=== PATIENT | female | born 2005 | race Caucasian/White ===

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

== ENCOUNTER 2024-02-03 07:25 | Emergency (ER) | payer OTHER, MEDICAID, SELFPAY ==
[2024-02-03 07:34] VITALS: BP 157/95; PULSE 117; RESP 16; TEMP 36.6; O2SAT 99; BMI 23.7
[2024-02-03 07:40] VITALS: BP 134/95; PULSE 87; O2SAT 98
[2024-02-03] MEDS: sodium chloride 0.9% 1,000 ML 999 ML IV (07:51)
--- NOTE | 2024-02-03 07:51 | ED_ITS ---
HPI - Nausea/Vomiting/Diarrhea 2 General: Chief complaint: Nausea/Vomiting/Diarrhea Stated complaint: NVD Time Seen by Provider: 02/03/24 07:27 History of Present Illness: 18-year-old female presents emergency ro om complaining of nausea and vomiting. Days. He had about 3 days ago she was seen yesterday at [facility] urgent care clinic they gave her Zofran and omeprazole. Discussed with her, sounds like a Paxlovid had some reflux dyspepsia from overproduction acid. While she is not nauseous she has not had any abdominal pain. She denies any fever sweats chills dysuria urgency or frequency no shortness of breath no chest pain. The most she can do to localize discomfort is right upper quadrant abdominal pain. She has not noticed specific trigger her symptoms. Associated nausea: Yes Associated symtoms: Reports nausea; Denies chest pain or dysuria Related Data Home Medications Medication Instructions Recorded Confirmed etonogestrel 0.12 mg-ethinyl 1 vag ring vaginal .Q28D 02/03/24 02/03/24 estradiol 0.015 mg/24 hr vaginal ring (EluRyng) omeprazole 40 mg capsule,delayed 40 mg PO QAM 02/03/24 02/03/24 release ondansetron HCl 4 mg tablet 4 mg PO Q8H PRN Nausea 02/03/24 02/03/24 Previous Rx's Medication Instructions Recorded sulfamethoxazole 800 1 tab PO Q12H 7 days #14 tabs 02/03/24 mg-trimethoprim 160 mg tablet (Bactrim DS) Allergies Allergy/AdvReac Type Severity Reaction Status Date / Time No Known Allergies Allergy Verified 02/03/24 07:37 Review of Systems 2 Const: Denies: fever(s) or chills Card: Denies: chest pain Resp: Denies: dyspnea GI: Reports: abdominal pain, nausea and vomiting : Denies: dysuria, urinary frequency or urinary urgency Musc: Denies: neck pain or back pain Skin/Breast: Denies: rash [facility] ED 2 Female Reproductive History: Date of last menstrual period: 01/05/24 Physical Exam 2 Const: COMMON NORMALS: no acute distress GENERAL APPEARANCE: cooperative and comfortable ORIENTATION/CONSCIOUSNESS: Yes awake, Yes oriented to person, Yes oriented to place and Yes oriented to time HENMT: COMMON NORMALS: normocephalic, atraumatic and hearing grossly normal bilaterally HEAD & SCALP: normocephalic and atraumatic Resp: COMMON NORMALS: normal respiratory effort, No retractions, No use of accessory muscles and clear to auscultation bilaterally AUSCULTATION: clear to auscultation bilaterally Cardio: COMMON NORMALS: regular rate, regular rhythm and No murmurs present (Cardio) RATE: regular rate RHYTHM: regular rhythm GI: COMMON NORMALS: Soft to palpation and No hepatosplenomegaly present A USCULTATION: Yes normoactive bowel sounds PALPATION: Yes Soft to palpation, No Tenderness to palpation present (GI), No Guarding due to palpation present (GI) and Yes No hepatosplenomegaly present Extremity: COMMON NORMALS: normal to inspection, capillary refill normal, no clubbing, cyanosis or edema, no calf tenderness and no pedal edema Neuro: SENSORIUM/ORIENTATION: Yes oriented to person, Yes oriented to place and Yes oriented to time Skin: COMMON NORMALS: no rashes or lesions noted GENERAL SKIN EXAM: no rashes or lesions noted Course 2 Vital Signs: Vital signs: Vital Signs Temperature 97.8 F 02/03/24 07:34 Pulse Rate 71 02/03/24 10:18 Respiratory Rate 18 02/03/24 09:45 Blood Pressure 120/77 02/03/24 10:18 Pulse Oximetry 97 02/03/24 10:18 Oxygen Delivery Me thod Room Air 02/03/24 09:45 MDM - Nausea/Vomiting/Diarrhea Medical Decision Making Exam no acute abdominal findings no leukocytosis. She does have a mild cystitis. No pain McBurney's point negative German sign. Liver functions are normal urine shows cystitis. Started Bactrim DS 1 p.o. twice daily promethazine to use as needed increase fluids follow-up as needed Lab Data 02/03/24 07:43 02/03/24 07:43 Laboratory Results WBC 7.55 10^3/uL (4.5-13.0) 02/03/24 07:43 RBC 4.88 10^6/uL (3.85-5.65) 02/03/24 07:43 Hgb 14.90 g/dL (12.4-14.8) H 02/03/24 07:43 Hct 43.3 % (36-47) 02/03/24 07:43 MCV 88.7 fl (85-98) 02/03/24 07:43 MCH 30.5 pg (27-33) 02/03/24 07:43 MCHC 34.4 g/dL (30-55) 02/03/24 07:43 RDW 13.1 % (12.1-15.1) 02/03/24 07:43 Plt Count 218 10^3/cmm (157-399) 02/03/24 07:43 MPV 11.6 fL (7.4-10.4) H 02/03/24 07:43 Neut % (Auto) 67.6 % 02/03/24 07:43 Lymph % (Auto) 24.5 % 02/03/24 07:43 Pepin % (Auto) 6.8 % 02/03/24 07:43 Eos % (Auto) 0.4 % 02/03/24 07:43 Baso % (Auto) 0.4 % 02/03/24 07:43 Neut # (Auto) 5.11 10^3/uL (1.8-8.0) 02/03/24 07:43 Lymph # (Auto) 1.9 10^3/uL (1.5-6.5) 02/03/24 07:43 Pepin # (Auto) 0.5 10^3/uL (0.2-0.9) 02/03/24 07:43 Eos # (Auto) 0.0 10^3/uL (0.0-0.8) 02/03/24 07:43 Baso # (Auto) 0.0 10^3/uL (0.0-0.1) 02/03/24 07:43 Nucleated RBC % (auto) 0 % 02/03/24 07:43 Nucleated RBCs # 0.0 /100WBC 02/03/24 07:43 Sodium 135 mmol/L (136-145) L 02/03/24 07:43 Potassium 3.5 mmol/L (3.5-5.1) 02/03/24 07:43 Chloride 100 mmol/L (98-107) 02/03/24 07:43 Carbon Dioxide 23 mmol/L (22-29) 02/03/24 07:43 Anion Gap 15.5 (5-19) 02/03/24 07:43 BUN 11 mg/dL (6-20) 02/03/24 07:43 Creatinine 0.8 mg/dL (0.5-0.9) 02/03/24 07:43 GFR Calculation 91.4 mL/min (90-130) 02/03/24 07:43 Glucose 94 mg/dL (65-115) 02/03/24 07:43 Calculated Osmolality 279 mOsm/kg (285-295) L 02/03/24 07:43 Calcium 9.4 mg/dL (8.5-10.5) 02/03/24 07:43 Total Bilirubin 0.9 mg/dL (0.15-1.2) 02/03/24 07:43 AST 19 U/L (0-32) 02/03/24 07:43 ALT 13 U/L (0-33) 02/03/24 07:43 Alkaline Phosphatase 90 U/L (35-105) 02/03/24 07:43 Total Protein 8.7 g/dL (6.6-8.7) 02/03/24 07:43 Albumin 4.8 g/dL (3.5-5.2) 02/03/24 07:43 Globulin 3.9 g/dL (1.3-4.6) 02/03/24 07:43 HCG, Qual Negative (Negative) 02/03/24 07:43 Urine Color Dark yellow (Yellow) A 02/03/24 07:50 Urine Appearance Clear (CLEAR) 02/03/24 07:50 Urine pH 7.0 (5-7) 02/03/24 07:50 Ur Specific Orange 1.022 (1.005-1.030) 02/03/24 07:50 Urine Protein Trace (Negative) A 02/03/24 07:50 Urine Glucose (UA) Negative (Normal) 02/03/24 07:50 Urine Ketones Negative (Negative) 02/03/24 07:50 Urine Blood Negative (Negative) 02/03/24 07:50 Urine Nitrate Negative (Negative) 02/03/24 07:50 Urine Bilirubin Negative (Negative) 02/03/24 07:50 Urine Urobilinogen 1.0 mg/dL (Negative) 02/03/24 07:50 Ur Leukocyte Esterase 1+ (Negative) A 02/03/24 07:50 Urine RBC 0-2 /hpf (0-2) 02/03/24 07:50 Urine WBC 11-20 /hpf (0-5) H 02/03/24 07:50 Ur Squamous Epith Cells 11-20 /hpf (0-5) 02/03/24 07:50 Amorphous Sediment Not Reportable 02/03/24 07:50 Urine Bacteria 3+ /hpf (NONE) H 02/03/24 07:50 Hyaline Casts 3.30 /lpf 02/03/24 07:50 No radiology studies performed this visit Discharge Plan Discharge Patient Disposition: Home Clinical Impression: Cystitis, Nausea & vomiting Condition: Stable Prescriptions: New Bactrim DS 800-160 mg tablet 1 tab PO Q12H 7 Days Qty: 14 0RF No Action Zofran 4 mg Tablet 4 mg PO Q8H PRN (Reason: Nausea) omeprazole 40 mg Capsule,Delayed Release(Dr/Ec) 40 mg PO QAM EluRyng 0.12-0.015 mg/24 hr ring 1 vag ring VAGINAL .Q28D Discharge Orders: Discharge ED (Routine); Ordered 02/03/24 Ordered By: Silvano Brady Referrals: [facility] [Other] Discharge Diet: Full LIquid Discharge Activity: Increase activity as tolerated Patient Instructions: Urinary Tract Infection in Women (ED), Opioid Safety, Pain Management Activity Restrictions/Additional Instructions: Thank you for choosing [facility] for your healthcare needs today. It is very important that you follow up as instructed or that you return to the Emergency Department should you have concerns or if your condition changes or worsens in any way. Coding Level of Care Code ED Edger Automatic for Hermelinda Cabral
[2024-02-03 07:57] LABS: Add Urine Microscopic? NO; Charge for UA Resulting for Rev
[2024-02-03 08:07] LABS: Alanine Aminotransferase 13 U/L (0-33); Albumin Level 4.8 g/dL (3.5-5.2); Alkaline Phosphatase 90 U/L (35-105); Anion Gap 15.5 (5-19); Aspartate Amino Transferase 19 U/L (0-32); Blood Urea Nitrogen 11 mg/dL (6-20); Calcium 9.4 mg/dL (8.5-10.5); Carbon Dioxide 23 mmol/L (22-29); Chloride 100 mmol/L (98-107); Creatinine Clr Calc Pharmacy 129.8453; Globulin 3.9 g/dL (1.3-4.6); Glomerular Filtration Rate 91.4 mL/min (90-130); Glucose 94 mg/dL (65-115); HCG, Serum Qual Negative (Negative); Osmolality Calculated 279 mOsm/kg (285-295); Potassium 3.5 mmol/L (3.5-5.1); Sodium 135 mmol/L (136-145); Total Bilirubin 0.9 mg/dL (0.15-1.2); Total Protein 8.7 g/dL (6.6-8.7)
[2024-02-03 08:09] LABS: Bilirubin Urine Negative (Negative); Blood Urine Negative (Negative); Glucose Urine UA Negative (Normal); Ketones Urine Negative (Negative); Leukocyte Esterase Urine 1+ (Negative); Nitrate Urine Negative (Negative); Protein Urine Trace (Negative); Specific Gravity, Urine 1.022 (1.005-1.030); Urine Appearance Clear (CLEAR); Urine Color Dark Yellow (Yellow)
[2024-02-03 08:10] LABS: Basophils % 0.4 %; Eosinophils % 0.4 %; Hematocrit 43.3 % (36-47); Lymphocytes # 1.9 10^3/uL (1.5-6.5); Lymphocytes % 24.5 %; Mean Corpuscular HGB Conc 34.4 g/dL (30-55); Mean Corpuscular Hemoglobin 30.5 pg (27-33); Mean Corpuscular Volume 88.7 fl (85-98); Mean Platelet Volume 11.6 fL (7.4-10.4); Monocytes # 0.5 10^3/uL (0.2-0.9); Monocytes % 6.8 %; Neutrophils # 5.11 10^3/uL (1.8-8.0); Neutrophils % 67.6 %; Nucleated Red Blood Cells % 0 %; Platelet Count 218 10^3/cmm (157-399); Red Blood Count 4.88 10^6/uL (3.85-5.65); Red Cell Distribution Width 13.1 % (12.1-15.1); White Blood Count 7.55 10^3/uL (4.5-13.0)
[2024-02-03 08:14] LABS: Bacteria Urine 3+ /hpf; RBC Urine 0-2 /hpf (0-2)
[2024-02-03 08:29] LABS: Add Urine Culture? Yes
[2024-02-03 09:45] VITALS: BP 100/59; PULSE 62; RESP 18; O2SAT 98
[2024-02-03 10:18] VITALS: BP 120/77; PULSE 71; O2SAT 97
== END 2024-02-03 10:18 | disposition home or self-care (01) ==
PROVIDERS: Emergency Provider Family Medicine
DX: N30.90 Cystitis, unspecified without hematuria (principal); R11.2 Nausea with vomiting, unspecified
CPT/HCPCS: 36415; 80053; 81003; 84703; 85025; 87086; 96360; 96361; 99284; J7030

== ENCOUNTER 2024-03-28 15:52 | Emergency (ER) | payer OTHER, MEDICAID, SELFPAY ==
[2024-03-28 16:31] VITALS: BP 107/71; PULSE 92; RESP 17; TEMP 37.3; O2SAT 99; BMI 24.3
[2024-03-28 16:52] LABS: Basophils % 0.2 %; Eosinophils # 0.1 10^3/uL (0.0-0.8); Eosinophils % 0.9 %; Hematocrit 43.2 % (36-47); Lymphocytes # 1.9 10^3/uL (1.5-6.5); Mean Corpuscular HGB Conc 33.6 g/dL (30-55); Mean Corpuscular Hemoglobin 30.3 pg (27-33); Mean Corpuscular Volume 90.4 fl (85-98); Mean Platelet Volume 11.5 fL (7.4-10.4); Monocytes # 0.8 10^3/uL (0.2-0.9); Monocytes % 9.4 %; Neutrophils # 5.43 10^3/uL (1.8-8.0); Neutrophils % 66.3 %; Nucleated Red Blood Cells % 0 %; Platelet Count 197 10^3/cmm (157-399); Red Blood Count 4.78 10^6/uL (3.85-5.65); Red Cell Distribution Width 12.9 % (12.1-15.1); White Blood Count 8.19 10^3/uL (4.5-13.0)
[2024-03-28 17:10] LABS: Alanine Aminotransferase 18 U/L (0-33); Albumin Level 4.7 g/dL (3.5-5.2); Alkaline Phosphatase 107 U/L (35-105); Anion Gap 14.1 (5-19); Aspartate Amino Transferase 19 U/L (0-32); Blood Urea Nitrogen 12 mg/dL (6-20); Calcium 9.1 mg/dL (8.5-10.5); Carbon Dioxide 26 mmol/L (22-29); Chloride 104 mmol/L (98-107); Creatinine Clr Calc Pharmacy 169.8687; Globulin 2.4 g/dL (1.3-4.6); Glomerular Filtration Rate 127.5 mL/min (90-130); Glucose 87 mg/dL (65-115); Lipase 41 U/L (13-60); Osmolality Calculated 289 mOsm/kg (285-295); Potassium 4.1 mmol/L (3.5-5.1); Sodium 140 mmol/L (136-145); Total Bilirubin 0.4 mg/dL (0.15-1.2); Total Protein 7.1 g/dL (6.6-8.7)
[2024-03-28 17:13] LABS: HCG, Serum Qual Negative (Negative)
[2024-03-28 17:31] LABS: Bilirubin Urine Negative (Negative); Blood Urine Negative (Negative); Glucose Urine UA Negative (Normal); Ketones Urine Negative (Negative); Leukocyte Esterase Urine Negative (Negative); Nitrate Urine Negative (Negative); Protein Urine Negative (Negative); Specific Gravity, Urine 1.011 (1.005-1.030); Urine Appearance Clear (CLEAR); Urine Color Yellow (Yellow); pH Urine 6.5 (5-7)
[2024-03-28 17:33] VITALS: BP 134/89; PULSE 96; RESP 16; O2SAT 99
[2024-03-28 17:33] LABS: Add Urine Microscopic? YES; Bacteria Urine None Seen /hpf; Hyaline Casts Urine 0-4 /lpf; RBC Urine 0-2 /hpf (0-2); Squamous Epithelial Cell Urine 0-5 /hpf (0-5); WBC Urine 0-5 /hpf (0-5)
--- NOTE | 2024-03-28 17:39 | XRR_ITS ---
PROCEDURE INFORMATION: Exam: XR Chest Exam date and time: 03/28/2024 6:30 PM Age: 18 years old Clinical indication: Patient HX: C/O pelvic pain with constipationsind TECHNIQUE: Imaging protocol: Radiologic exam of the chest. Views: 1 view. COMPARISON: No relevant prior studies available. FINDINGS: Lungs: Lungs are clear. Pleural spaces: There is no pleural effusion or pneumothorax. Heart/Mediastinum: Cardiomediastinal contours are unremarkable. Bones/joints: Bones are unremarkable. PROCEDURE INFORMATION: Exam: XR Abdomen Exam date and time: 03/28/2024 6:30 PM Age: 18 years old Clinical indication: Patient HX: C/O pelvic pain with constipationsind TECHNIQUE: Imaging protocol: Radiologic exam of the abdomen. Views: 3 or more views. COMPARISON: No relevant prior studies available. FINDINGS: Gastrointestinal tract: Bowel gas pattern is unremarkable. No sign of obstruction. The colon contains stool diffusely. The ascending and proximal transverse colon is mildly stool distended. Intraperitoneal space: No free air. Bones/joints: Bones are unremarkable. XR/XR abdomen 3V [id number] IMPRESSION: No acute findings. IMPRESSION: 1. No acute findings. 2. Mildly stool distended colon. This finding would support a clinical diagnosis of constipation.
--- NOTE | 2024-03-28 17:39 | USR_ITS ---
PROCEDURE INFORMATION: Exam: US Duplex Artery and Vein of the Abdominal and/or Reproductive Organs. Complete Ovaries Exam date and time: 03/28/2024 7:14 PM Age: 18 years old Clinical indication: Pelvic pain TECHNIQUE: Imaging protocol: Real-time duplex ultrasound scan of the arterial and venous flow with color Doppler flow and spectral waveform analysis with image documentation. Duplex exam was performed to evaluate for torsion and other vascular conditions. COMPARISON: [place] [id number] 11/12/2021 11:13 AM FINDINGS: Right ovary/adnexa: Normal arterial and venous Doppler waveforms. Left ovary/adnexa: Normal arterial and venous Doppler waveforms. PROCEDURE INFORMATION: Exam: US Pelvis, Transvaginal, Non-Obstetric Exam date and time: 03/28/2024 7:14 PM Age: 18 years old Clinical indication: Pelvic pain TECHNIQUE: Imaging protocol: Real-time transvaginal pelvic (non-obstetric) ultrasound with image documentation. Transvaginal imaging was used for better evaluation of the endometrium, adnexa, and/or cervix. COMPARISON: [place] [id number] 11/12/2021 11:13 AM FINDINGS: Uterus: The uterus measures 7.1 x 4.0 x 3.4 cm. The uterus is anteverted. Uterine contours are normal. There is focal thickening of the fundal endometrium. Endometrial stripe thickness measures up to 1 cm. There is no fluid in the endometrial canal. Endometrium in the uterine body and lower uterine segment is suboptimally visualized. There is a punctate endometrial calcification near the fundus. Right ovary/adnexa: Right ovary measures 2.0 x 1.3 x 1.3 cm for a volume of 1.8 cc. Normal color Doppler signal in the right ovary. The right ovary is morphologically normal. Left ovary/adnexa: The left ovary measures 4.0 x 3.8 x 2.7 cm for a volume of 21.7 cc. Normal color Doppler signal in the left ovary. Left ovary is asymmetrically enlarged and demonstrates an irregular hypoechoic central region with low level internal echoes and thin septations. The left ovary demonstrates peripheral ill-defined increased echogenicity. Normal follicles are not visible in the left ovary. The central hypoechoic region measures approximately 2.9 x 2.1 x 1.6 cm and demonstrates no internal blood flow. Urinary bladder: Obscured. Vasculature: Normal arterial and venous spectral Doppler waveforms in the right ovary. Normal arterial and venous spectral Doppler waveforms in the left ovary. Intraperitoneal space: Moderate simple pelvic free fluid. US/US transvaginal [id number] IMPRESSION: Normal ovarian arterial and venous vascular flow. IMPRESSION: 1. Asymmetrically enlarged morphologically abnormal left ovary with an irregular 2.9 cm internal hypoechoic region with septations. There is no internal blood flow in hypoechoic region. This finding may represent a ruptured hemorrhagic cyst. Alternatively, ovarian torsion with central necrosis could have this appearance. Recent or ongoing ovarian torsion is not excluded despite normal arterial and venous waveforms in the periphery of the ovary. 2. Moderate volume pelvic free fluid. Fluid appears simple in character. Bleeding cannot be excluded. 3. Suboptimally visualized endometrium. Focal thickening of the fundal endometrium is visible but may be nonpathologic. Endometrial polyp is not excluded. Recommend ultrasound follow-up in 6 weeks.
[2024-03-28 19:00] VITALS: PULSE 87; RESP 16; O2SAT 99
[2024-03-28 20:00] VITALS: PULSE 82; RESP 18; O2SAT 96
--- NOTE | 2024-03-28 20:14 | ED_ITS ---
HPI - Abdominal Pain 2 General: Chief Complaint: Abdominal Pain Stated Complaint: lower abd pain Time Seen by Provider: 03/28/24 17:23 History of Present Illness: This patient is a 18-year-old white female who presents to the ER complaining of pelvic pain central to right. She states it is worse with movement. She states she has had some cramping for about a week now and was constipated. She then had diarrhea on Friday. Now she has not had a bowel movement since Friday. She had severe pain this morning after intercourse. She has not had any vaginal bleeding. No discharge. No fever. No dysuria. Related Data Home Medications Medication Instructions Recorded Confirmed etonogestrel 0.12 mg-ethinyl 1 vag ring vaginal .Q28D 02/03/24 02/03/24 estradiol 0.015 mg/24 hr vaginal ring (Jitendrang) omeprazole 40 mg capsule,delayed 40 mg PO QAM 02/03/24 02/03/24 release ondansetron HCl 4 mg tablet 4 mg PO Q8H PRN Nausea 02/03/24 02/03/24 Allergies Allergy/AdvReac Type Severity Reaction Status Date / Time No Known Allergies Allergy Verified 03/28/24 16:36 Review of Systems 2 General: Reports: 10 or more systems reviewed and unremarkable except in HPI and below : Reports: pelvic pain Physical Exam 2 Const: COMMON NORMALS: no acute distress, patient oriented x3 and no limitations GENERAL APPEARANCE: cooperative and comfortable HENMT: COMMON NORMALS: normocephalic, atraumatic, Normal nasal mucous membranes and turbinates present, moist oral mucous membranes and oropharynx normal HEAD & SCALP: normal to inspection, normocephalic and atraumatic F RICKIE & SINUS: normal facial exam NOSE: Normal nasal mucous membranes and turbinates present Eye: COMMON NORMALS: Equal, round and reactive pupils present, EOMs intact bilaterally and conjunctivae normal GENERAL EYE: appearance normal, both eyes and all related structures CONJUNCTIVA: Yes conjunctivae normal PUPIL: Yes Equal, round and reactive pupils present Neck/C-Spine: COMMON NORMALS: supple and no JVD Chest: COMMONS NORMALS: normal inspection of the chest Resp: COMMON NORMALS: normal respiratory effort and clear to auscultation bilaterally AUSCULTATION: clear to auscultation bilaterally Cardio: COMMON NORMALS: no JVD, regular rate, regular rhythm, No gallops present (Cardio), No murmurs present (Cardio) and No rub (Cardio) RATE: r egular rate RHYTHM: regular rhythm GI: COMMON NORMALS: Normal to inspection, nondistended, normoactive bowel sounds present, Soft to palpation and non-tender AUSCULTATION: Yes normoactive bowel sounds PALPATION: Yes Soft to palpation : COMMON NORMALS: Yes no CVA tenderness BLADDER/KIDNEY EXAM: Yes no CVA tenderness Back/Pelvis: COMMON NORMALS: no CVA tenderness and thoracic and lumbar spine normal to inspection Extremity: COMMON NORMALS: normal to inspection Neuro: COMMON NORMALS: patient oriented x3 and CN's II-XII intact bilaterally Psych: COMMON NORMALS: mental status grossly normal, Normal thought process present and cooperative THOUGHT PROCESS: Normal thought process present Skin: COMMON NORMALS: no rashes or lesions noted, turgor normal and no jaundice GENERAL SKIN EXAM: no rashes or lesions noted and turgor normal Course 2 Vital Signs: Vital signs: Vital Signs Temperature 99.1 F 03/28/24 16:31 Pulse Rate 96 03/28/24 17:33 Respiratory Rate 16 03/28/24 17:33 Blood Pressure 134/89 03/28/24 17:33 Pulse Oximetry 99 03/28/24 17:33 Oxygen Delivery Me thod Room Air 03/28/24 17:33 MDM - Abdominal Pain Medical Decision Making CBC and CMP were normal. Lipase normal at 41. test was negative. Urinalysis normal. Abdominal flatplate and upright films revealed some mild constipation. Ultrasound of the pelvis was read with the radiologist. The left ovary is abnormal. There is blood flow to it but there is a central area that may be hemorrhagic. There is a moderate amount of fluid in the pelvis, cannot rule out blood. I discussed this case with Dr. Oconnell, chummer. She recommended patient take ibuprofen and follow-up in the clinic. I discussed this with the patient recommend she contact the clinic tomorrow to schedule an appointment. Patient is hemodynamically stable. She was discharged in stable condition. Lab Data 03/28/24 16:46 03/28/24 16:46 Labs/Radiology: Radiology Impressions Abdomen X-Ray 03/28/24 17:39 IMPRESSION: No acute findings. IMPRESSION: 1. No acute findings. 2. Mildly stool distended colon. This finding would support a clinical diagnosis of constipation. Transvaginal US 03/28/24 17:39 IMPRESSION: Normal ovarian arterial and venous vascular flow. IMPRESSION: 1. Asymmetrically enlarged morphologically abnormal left ovary with an irregular 2.9 cm internal hypoechoic region with septations. There is no internal blood flow in hypoechoic region. This finding may represent a ruptured hemorrhagic cyst. Alternatively, ovarian torsion with central necrosis could have this appearance. Recent or ongoing ovarian torsion is not excluded despite normal arterial and venous waveforms in the periphery of the ovary. 2. Moderate volume pelvic free fluid. Fluid appears simple in character. Bleeding cannot be excluded. 3. Suboptimally visualized endometrium. Focal thickening of the fundal endometrium is visible but may be nonpathologic. Endometrial polyp is not excluded. Recommend ultrasound follow-up in 6 weeks. ADDENDUM: 03/28/242004 THIS REPORT CONTAINS FINDINGS THAT MAY BE CRITICAL TO PATIENT CARE. The findings and recommendations were personally verbally communicated via telephone conference with ULYSSES IRIZARRY at 8:04 PM [employer] on 03/28/2024. The findings were acknowledged and understood. Laboratory Results WBC 8.19 10^3/uL (4.5-13.0) 03/28/24 16:46 RBC 4.78 10^6/uL (3.85-5.65) 03/28/24 16:46 Hgb 14.50 g/dL (12.4-14.8) 03/28/24 16:46 Hct 43.2 % (36-47) 03/28/24 16:46 MCV 90.4 fl (85-98) 03/28/24 16:46 MCH 30.3 pg (27-33) 03/28/24 16:46 MCHC 33.6 g/dL (30-55) 03/28/24 16:46 RDW 12.9 % (12.1-15.1) 03/28/24 16:46 Plt Count 197 10^3/cmm (157-399) 03/28/24 16:46 MPV 11.5 fL (7.4-10.4) H 03/28/24 16:46 Neut % (Auto) 66.3 % 03/28/24 16:46 Lymph % (Auto) 23.0 % 03/28/24 16:46 Sharkey % (Auto) 9.4 % 03/28/24 16:46 Eos % (Auto) 0.9 % 03/28/24 16:46 Baso % (Auto) 0.2 % 03/28/24 16:46 Neut # (Auto) 5.43 10^3/uL (1.8-8.0) 03/28/24 16:46 Lymph # (Auto) 1.9 10^3/uL (1.5-6.5) 03/28/24 16:46 Sharkey # (Auto) 0.8 10^3/uL (0.2-0.9) 03/28/24 16:46 Eos # (Auto) 0.1 10^3/uL (0.0-0.8) 03/28/24 16:46 Baso # (Auto) 0.0 10^3/uL (0.0-0.1) 03/28/24 16:46 Nucleated RBC % (auto) 0 % 03/28/24 16:46 Nucleated RBCs # 0.0 /100WBC 03/28/24 16:46 Sodium 140 mmol/L (136-145) 03/28/24 16:46 Potassium 4.1 mmol/L (3.5-5.1) 03/28/24 16:46 Chloride 104 mmol/L (98-107) 03/28/24 16:46 Carbon Dioxide 26 mmol/L (22-29) 03/28/24 16:46 Anion Gap 14.1 (5-19) 03/28/24 16:46 BUN 12 mg/dL (6-20) 03/28/24 16:46 Creatinine 0.6 mg/dL (0.5-0.9) 03/28/24 16:46 GFR Calculation 127.5 mL/min (90-130) 03/28/24 16:46 Glucose 87 mg/dL (65-115) 03/28/24 16:46 Calculated Osmolality 289 mOsm/kg (285-295) 03/28/24 16:46 Calcium 9.1 mg/dL (8.5-10.5) 03/28/24 16:46 Total Bilirubin 0.4 mg/dL (0.15-1.2) 03/28/24 16:46 AST 19 U/L (0-32) 03/28/24 16:46 ALT 18 U/L (0-33) 03/28/24 16:46 Alkaline Phosphatase 107 U/L (35-105) H 03/28/24 16:46 Total Protein 7.1 g/dL (6.6-8.7) 03/28/24 16:46 Albumin 4.7 g/dL (3.5-5.2) 03/28/24 16:46 Globulin 2.4 g/dL (1.3-4.6) 03/28/24 16:46 Lipase 41 U/L (13-60) 03/28/24 16:46 HCG, Qual Negative (Negative) 03/28/24 16:46 Urine Color Yellow (Yellow) 03/28/24 17:24 Urine Appearance Clear (CLEAR) 03/28/24 17:24 Urine pH 6.5 (5-7) 03/28/24 17:24 Ur Specific [place] 1.011 (1.005-1.030) 03/28/24 17:24 Urine Protein Negative (Negative) 03/28/24 17:24 Urine Glucose (UA) Negative (Normal) 03/28/24 17:24 Urine Ketones Negative (Negative) 03/28/24 17:24 Urine Blood Negative (Negative) 03/28/24 17:24 Urine Nitrate Negative (Negative) 03/28/24 17:24 Urine Bilirubin Negative (Negative) 03/28/24 17:24 Urine Urobilinogen 1.0 mg/dL (Negative) 03/28/24 17:24 Ur Leukocyte Esterase Negative (Negative) 03/28/24 17:24 Urine RBC 0-2 /hpf (0-2) 03/28/24 17:24 Urine WBC 0-5 /hpf (0-5) 03/28/24 17:24 Ur Squamous Epith Cells 0-5 /hpf (0-5) 03/28/24 17:24 Amorphous Sediment Not Reportable 03/28/24 17:24 Urine Bacteria None seen /hpf (NONE) 03/28/24 17:24 Hyaline Casts 0-4 /lpf H 03/28/24 17:24 All radiology interpretation(s) finalized by discharge Discharge Plan Discharge Patient Disposition: Home Clinical Impression: Hemorrhagic cyst of left ovary Condition: Stable Prescriptions: No Action Zofran 4 mg Tablet 4 mg PO Q8H PRN (Reason: Nausea) omeprazole 40 mg Capsule,Delayed Release(Dr/Ec) 40 mg PO QAM EluRyng 0.12-0.015 mg/24 hr ring 1 vag ring VAGINAL .Q28D Discharge Orders: Discharge ED (Routine); Ordered 03/28/24 Ordered By: Durga Irizarry Referrals: Natividad Oconnell DO [Physician] - Curry Moeller MD [Primary Care Provider] - Patient Instructions: Ovarian Cyst (ED) Activity Restrictions/Additional Instructions: Take ibuprofen and/or Tylenol for discomfort. Follow-up with Dr. Oconnell in the [facility] soon as possible for recheck. Call the office tomorrow to schedule an appointment. Coding Level of Care Code ED L[employer] Supervisor for Hermelinda Cabral
[2024-03-28 21:23] VITALS: BP 122/81; PULSE 80; O2SAT 98
== END 2024-03-28 20:27 | disposition home or self-care (01) ==
PROVIDERS: Emergency Medicine; Emergency Provider Emergency Medicine; PCP Family Medicine
DX: R10.2 Pelvic and perineal pain (principal); N83.202 Unspecified ovarian cyst, left side
CPT/HCPCS: 36415; 74021; 76830; 80053; 81001; 83690; 84703; 85025; 99284

== ENCOUNTER → 2025-04-15 09:43 | Outpatient (BNVA) | payer OTHER, MEDICAID, SELFPAY | PROVIDERS: Visit Provider Obstetrics & Gynecology | DX: Z01.419 Encounter for gynecological examination (general) (routine) without abnormal findings (principal) | CPT/HCPCS: 88175 ==